=== PATIENT | female | born 1985 | race Two or more races ===

== ENCOUNTER 2017-03-19 08:51 | Emergency (ER) | payer MEDICAID, OTHER ==
[~2017-03-19] VITALS: Ht 170.2 cm; Wt 65.8 kg
[2017-03-19 09:24] VITALS: BP 104/71
[2017-03-19] MEDS ORDERED: TETANUS-DIPTH-ACEL PERTUSSIS 0.5ML SYRG IM ONE (10:15)
== END 2017-03-19 10:28 | disposition home or self-care (01) ==
LOC: ER 08:51
DX: S60.512A Abrasion of left hand, initial encounter (principal); S60.511A Abrasion of right hand, initial encounter; F10.120 Alcohol abuse with intoxication, uncomplicated; V49.49XA Driver injured in collision with other motor vehicles in traffic accident, initial encounter; Y93.89 Activity, other specified; Y99.8 Other external cause status; Y92.410 Unspecified street and highway as the place of occurrence of the external cause
CPT/HCPCS: 90471; 90715